=== PATIENT | male | born 1970 | race Caucasian/White ===

== ENCOUNTER 2023-06-20 10:47 | Emergency (ER) | payer OTHER, SELFPAY ==
[2023-06-20 10:48] VITALS: BP 162/95
[2023-06-20 11:21] LABS: % Basophils 0.7 % (0-2); % Eosinophils 3.2 % (0-6); % Immature Granulocytes 0.5 % (0-0.5); % Lymphocytes 36.5 % (20.5-51.1); % Monocytes 9.1 % (1.7-9.3); Absolute Eosinophils 0.1 10^3/uL (0-0.7); Absolute Lymphocytes 1.5 10^3/uL (1.2-3.4); Absolute Monocytes 0.4 10^3/uL (0.1-0.6); Hematocrit 40.4 % (39.0-52.0); Hemoglobin 14.4 g/dL (13.0-18.0); Mean Corp Hgb Conc. 35.6 g/dL (33.0-37.0); Mean Corpuscular Hgb 30.9 pg (27.0-31.0); Mean Corpuscular Volume 86.7 fL (80.0-94.0); Nucleated Red Blood Cells % 0 % (-); Platelet Count 145 10^3/uL (130-400); Red Blood Cell Count 4.66 10^6/uL (4.70-6.10); Red Cell Dist. Width 12.1 % (11.5-14.5); White Blood Cell Count 4.1 10^3/uL (4.8-10.8)
--- NOTE | 2023-06-20 11:26 | ED.GENMED ---
History of Present Illness
<Carol Lopez PA-C - Last Filed: 06/20/23 22:56>
General
Chief Complaint: Fainting Sensation
Source: patient
Exam Limitations: none
Time Seen by Provider: 06/20/23 11:01
Nursing documentation reviewed up to this point in time: agreed with
Travel History
Have you had any contact with someone who has COVID-19?: No
Do you have any symptoms of coronavirus? Fever > 100 degrees, chills, cough, shortness of breath, sore throat, loss of taste or smell, muscle aches, or headache?: No
History of Present Illness
History of Present Illness:
Patient is a 52-year-old male with history of vertigo presenting for evaluation of multiple complaints. Patient states that when he woke up this morning he generally felt unwell/'off '. While at work he endorses becoming very clammy, lightheaded,
and developing a gradual onset headache after reaching down to last picker some tools. While walking into the emergency department around 1045AM he noticed an acute onset substernal chest pressure and associated shortness of breath. Chest pressure is
nonexertional but he does endorse worsening with deep inspiration. He denies any abdominal pain, fever, chills, cough. He denies any recent viruses/illnesses. Patient denies any back pain, numbness/tingling, weakness.
He denies any recent travel or surgeries. He denies any personal history of blood clots. His father does have a history of DVT.
He reports this sensation of lightheadedness is very different from prior vertigo episodes.
Past History
<Carol Lopez PA-C - Last Filed: 06/20/23 22:56>
Past History
ED Past Medical History: Psychiatric (Generalized anxiety disorder) and Other (Vertigo, obstructive sleep apnea)
ED Past Surgical History: None
Social History
Tobacco: Former smoker
Alcohol: Occasional
Personal:
Living: with family
Family History
Family History: Early CAD
Phy Exam
<Carol Lopez PA-C - Last Filed: 06/20/23 22:56>
Physical Exam
Physical Exam:
General: In no apparent distress, non-toxic
Vitals: Hypertensive, otherwise vital signs stable,
HEENT: Atraumatic, normocephalic; pupils equal round reactive light bilaterally, protecting airway
Neck: appears supple, no JVD, no tenderness over the carotids bilaterally
CV: Regular rate and rhythm, heart sounds normal, no evidence of cyanosis; moderate tenderness to palpation of anterior chest wall
Resp: No evidence of respiratory distress, lungs clear; O2 saturation 100 on room air
Abd: Soft, nontender in all 4 quadrants, non-distended
Extremities: No deformities, no evidence of cyanosis or edema; DP pulses palpable and equal bilaterally
Neuro: alert and oriented x 3; grossly intact, moving all extremities spontaneously
Psych: Normal affect
Skin: Intact, no rashes
Scores
<Carol Lopez PA-C - Last Filed: 06/20/23 22:56>
Heart Score for Chest Pain Patients
STEMI patient?: No
History: Moderately Suspicious
ECG: Normal
Age: >45 - <65 years
Risk Factors: 1 or 2 Risk Factors
Troponin: </= Normal Limit
Heart Score for Chest Pain Patients: 3
Heart Score Risk: 2.5% MACE over next 6 weeks
PE Wells Score
Symptoms of DVT: No
No alternative diagnosis better explains the illness: No
Tachycardia with pulse > 100: No
Immobilization (>=3 days) or surgery within previous 4 weeks: No
Prior history of DVT or pulmonary embolism: No
Presence of hemoptysis: No
Presence of malignancy: No
Pulmonary Embolism Risk Score: 0
Probability of PE: Pt is low risk
PERC Rule Criteria
Age <50 years: No
HR <100 bpm: Yes
Room air oxygen sat >94%: Yes
History of DVT or PE: No
Recent trauma or surgery: No
Hemoptysis: No
Exogenous estrogen: No
Clinical signs suggestive of DVT: No
: No
Considered low risk for PE: Yes
PERC Score: 1
PE can be excluded by PERC: No
<Steven Butts, - Last Filed: 06/20/23 15:38>
PE Wells Score
Pulmonary Embolism Risk Score: 0
Probability of PE: Pt is low risk
PERC Rule Criteria
PERC Score: 1
PE can be excluded by PERC: No
Course
<Carol Lopez PA-C - Last Filed: 06/20/23 22:56>
Orders/Labs/Results
Orders:
Orders
06/20/23 11:12
Complete Blood Count/With Diff Urgent
Comprehensive Metabolic Panel Urgent
Troponin I Urgent
06/20/23 11:38
Electrocardiogram (*1) Urgent
Reason for Study: Chest Pain
EKG- Treatment ONCE
06/20/23 11:40
CR Chest - 2 Views Urgent
Comment:
Reason For Exam: chest pressure, shortness of breath
06/20/23 11:53
EKG- Treatment ONCE
06/20/23 11:57
D-Dimer Urgent
06/20/23 14:08
COVID-19 Antigen Urgent
Source: Nasal Swab
Troponin I Urgent
Influenza A+B Rapid Molecular Urgent
DENISE Source: Nasal Swab
Specimen Description:
06/20/23 15:56
Ibuprofen [Motrin] 400 mg PO NOW STA
Abnormal Lab Results
06/20/23
11:12
WBC 4.1 L 10^3/uL
(4.8-10.8)
RBC 4.66 L 10^6/uL
(4.70-6.10)
MPV 11.0 H fL
(7.4-10.4)
Glucose 128 H mg/dl
(70-99)
06/20/23 11:12
06/20/23 11:12
Vital Signs
Initial and Last Documented VS:
Initial Vital Signs
Temp Pulse Resp BP Pulse Ox
97.6 F 80 18 162/95 100
06/20/23 10:48 06/20/23 10:48 06/20/23 10:48 06/20/23 10:48 06/20/23 10:48
Last Documented Vital Signs
Temp Pulse Resp BP Pulse Ox
97.6 F 70 21 152/94 100
06/20/23 10:48 06/20/23 15:55 06/20/23 15:55 06/20/23 15:55 06/20/23 10:48
<Steven Butts, DO - Last Filed: 06/20/23 15:38>
Orders/Labs/Results
Orders:
Orders
06/20/23 11:12
Complete Blood Count/With Diff Urgent
Comprehensive Metabolic Panel Urgent
Troponin I Urgent
06/20/23 11:38
Electrocardiogram (*1) Urgent
Reason for Study: Chest Pain
EKG- Treatment ONCE
06/20/23 11:40
CR Chest - 2 Views Urgent
Comment:
Reason For Exam: chest pressure, shortness of breath
06/20/23 11:53
EKG- Treatment ONCE
06/20/23 11:57
D-Dimer Urgent
06/20/23 14:08
COVID-19 Antigen Urgent
Source: Nasal Swab
Troponin I Urgent
Influenza A+B Rapid Molecular Urgent
DENISE Source: Nasal Swab
Specimen Description:
06/20/23 15:56
Ibuprofen [Motrin] 400 mg PO NOW STA
Abnormal Lab Results
06/20/23
11:12
WBC 4.1 L 10^3/uL
(4.8-10.8)
RBC 4.66 L 10^6/uL
(4.70-6.10)
MPV 11.0 H fL
(7.4-10.4)
Glucose 128 H mg/dl
(70-99)
06/20/23 11:12
06/20/23 11:12
Vital Signs
Initial and Last Documented VS:
Initial Vital Signs
Temp Pulse Resp BP Pulse Ox
97.6 F 80 18 162/95 100
06/20/23 10:48 06/20/23 10:48 06/20/23 10:48 06/20/23 10:48 06/20/23 10:48
Last Documented Vital Signs
Temp Pulse Resp BP Pulse Ox
97.6 F 70 21 152/94 100
06/20/23 10:48 06/20/23 15:55 06/20/23 15:55 06/20/23 15:55 06/20/23 10:48
<Carol Lopez PA-C - Last Filed: 06/20/23 22:56>
MDM/Problems Addressed
Differential Diagnosis Includes:
Costochondritis, pericarditis, PE, ACS, viral illness, arrhythmia, vasovagal syncope
MDM/Problems Addressed:
Patient is a 52-year-old male presenting with chest pressure, shortness of breath, lightheadedness since this morning. Chest pain describes an acute onset pressure about an hour ago with no exertional component. There is some pleuritic component.
Patient is somewhat hypertensive, otherwise vital signs stable. Physical exam as documented above. Heart has regular rate and rhythm, lungs clear. Chest pain somewhat reproducible. He has no evidence of DVT on exam. Neuroexam without any focal
neurodeficits. Symptoms consistent with a vasovagal episode but given acute onset chest pain and shortness of breath will check basic labs, troponin, EKG, chest x-ray. Given pleuritic component of symptoms -will check D-dimer although suspicion
for PE low.
CBC with mild leukopenia of 4.1, otherwise no clinically significant abnormalities. Will add on covid/flu swabs to rule out viral infection CMP without any clinically significant abnormalities. Initial troponin negative. Given symptoms started
only an hour ago. Will repeat troponin in 3 hours. EKG shows normal sinus rhythm without any signs of ischemia. Chest x-ray pending.
In to reassess patient. His vital signs remain stale. Patient appears in no respiratory distress. Chest xray shows no evidence of acute cardiopulmonary disease. D-dimer negative. Repeat troponin negative. viral swabs negative.
Patient has been observed in department for over 5 hours with no worsening in symptoms or vital signs. Workup here has been entirely negative. Initial episode of lightheadedness seems vasovagal in nature. He has remained stable. Admit not indicated.
Will discharge with close return precautions, PCP follow-up. Patient and patient's comfortable with plan
Chronic conditions affecting care:
Depression
Acute Exacerbation and/or Progression of Chronic Illness:
N/A
<Carol Lopez PA-C - Last Filed: 06/20/23 22:56>
*Radiology
Radiology exam reviewed: preliminary read by ED provider and radiology read reviewed
*Pulse Oximetry
Patient hypoxic: no
*EKG
Interpreted by ED Provider?: Yes
EKG Intrepretation Date: 06/20/23
Interpretation: normal
Heart Rate: 64
Rate: normal
Rhythm: sinus
[place]: normal axis
Interval: normal interval
QRS Pattern: normal QRS
Ischemia: no ischemia
*[employer] Interpretation
Rate: normal
Interpretation: normal
Heart Rate: 68
Rhythm: sinus
*Critical Care Note
Total Time (30-74mins, 75-104mins- exclusive of procedures): Not Applicable
ED Attending Note
<Carol Lopez PA-C - Last Filed: 06/20/23 22:56>
-
Portions of this chart may have been created with voice recognition software.� Occasional wrong word or��sound alike� substitutions may have occurred due to the inherent limitations of voice recognition software.
<Steven Butts DO - Last Filed: 06/20/23 15:38>
ED Attending Note
Patient seen and examined by attending physician: Yes
I performed a history and physical exam of patient and discussed management with resident, I reviewed resident's note and agree with documented findings and plan of care.: Yes
ED Attending Note:
I have reviewed and agree with history and treatment plan by Carol Lopez. My exam revealed
Physical Exam
General: no apparent distress, not acutely ill
Neck: supple. no meningeal signs. normal posterior pharynx
Heart: s1/s2 regular rate and rhythm, no murmur. equal radial
pulses.
HEENT: Pupils equal round reactive to light, EOMI
Lungs: no acute respiratory distress. clear bilaterally, chest wall tender to palpation, reproducing pain.
Abdomen: normal bowel sounds. not tender. no CVAT
Neuro: alert and oriented. no focal neurological deficits cranial nerves II through XII intact
Skin: no rash
Psychiatric: well kept. interactive and cooperative
Extremities: no edema. no calf tenderness. negative homans. good distal pulses
No signs of dysrhythmia, troponins negative serially. Suspect chest pain is chest wall pain. D-dimer negative. Do not suspect dissection. Near syncope.
Discharge Plan
Departure
Patient Disposition: Home (Routine Discharge)
Date of Disposition: 06/20/23
Time of Disposition: 15:42
Patient with high blood pressure during this ER visit?: Yes
Condition: Good
Covid-19: Negative COVID-19
Discharge Problem:
Anterior chest wall pain
Instructions: Chest Pain (DC), BLOOD PRESSURE
Prescriptions:
No Action
sertraline 25 mg Tablet
25 mg PO DAILY
therapeutic multivitamin Tablet
1 tab PO DAILY
ascorbic acid (vitamin C) [Vitamin C] 500 mg Tablet
500 mg PO DAILY
ibuprofen 400 mg Tablet
400 mg PO Q6H PRN (Reason: mild pain)
cholecalciferol (vitamin D3) [Vitamin D3] 25 mcg (1,000 unit) Tablet,Chewable
25 mcg PO DAILY
meclizine 12.5 mg tablet
12.5 mg PO TID PRN (Reason: dizziness) 3 Days Qty: 9 0RF
Cortisporin-TC 3.3-3-10-0.5 mg/mL drops,suspension
1 drp otic (ear) BID 5 Days Qty: 10 0RF
Rx Instructions:
apply in left ear
Referrals:
Perfecto Elias MD [Family Provider] - Call in 1-3 days for appt
Stand Alone Forms: Return to Work
Activity Restrictions/Additional Instructions:
- Return to the emergency department with any worsening of chest pain, shortness of breath, persistent dizziness/lightheadedness, intractable nausea/vomiting, severe headache/neck pain, weakness, worsening in current symptoms, or any other concerns
-You can take Motrin/Tylenol as needed for discomfort
-You should follow-up with your primary care provider to ensure symptoms are improving and for further evaluation
Interventions
Interventions:
*Risk Screen - Suicide Last Done: 06/20/23 11:01
*General Assessment Last Done: 06/20/23 11:01
*Neglect/Abuse Screening Last Done: 06/20/23 11:01
ED- Fall Risk Assessment Last Done: 06/20/23 16:01
*ED COVID-19 Vaccine History Last Done: 06/20/23 11:01
*Nursing Disposition Last Done: 06/20/23 16:01
ED- Cardiac Assessment Last Done: 06/20/23 11:01
ED- Neurological Assessment Last Done: 06/20/23 11:01
Discharge Date and Time
Discharge Date/Time: 06/20/23 16:10
[2023-06-20 11:31] LABS: ALT (SGPT) 25 U/L (0-50); AST (SGOT) 33 U/L (17-59); Albumin 4.2 g/dl (3.5-5.0); Alkaline Phosphatase 76 U/L (38-126); Blood Urea Nitrogen 15 mg/dl (9-20); Calcium 8.9 mg/dl (8.4-10.2); Carbon Dioxide 26 mmol/L (22-30); Chloride 106 mmol/L (98-107); Glucose 128 mg/dl (70-99); Potassium 3.7 mmol/L (3.5-5.1); Sodium 137 mmol/L (135-145); Total Bilirubin 0.5 mg/dl (0.2-1.3); Total Protein 6.7 g/dl (6.3-8.2); eGFR > 60.00
[2023-06-20 11:43] LABS: Troponin I < 0.012 ng/ml
[2023-06-20 12:31] VITALS: BP 144/91
[2023-06-20 13:00] VITALS: BP 135/93
[2023-06-20 14:00] VITALS: BP 150/91
[2023-06-20 14:39] LABS: COVID-19 Antigen Negative (Negative)
[2023-06-20 15:00] VITALS: BP 154/83
[2023-06-20 15:07] LABS: Troponin I < 0.012 ng/ml
[2023-06-20 15:55] VITALS: BP 152/94
[2023-06-20] MEDS: MOTRIN 400 MG PO (16:00)
== END 2023-06-20 16:10 | disposition home or self-care (01) ==
LOC: EMR 10:47
PROVIDERS: Physician Assistant; EMERGENCY PHYSICIAN Emergency Medicine; FAMILY PHYSICIAN Family Medicine
DX: R07.89 Other chest pain (principal); Z87.891 Personal history of nicotine dependence; F32.A Depression, unspecified; R03.0 Elevated blood-pressure reading, without diagnosis of hypertension
CPT/HCPCS: 99285; 71046; 80053; 84484; 85025; 85379; 87502; 87811; 93005

== ENCOUNTER → 2023-11-16 15:02 | Outpatient (REF) | payer OTHER, SELFPAY | LOC: HWRAD 15:02 | PROVIDERS: ATTENDING PHYSICIAN Physician Assistant Medical | DX: M54.2 Cervicalgia (principal); E04.1 Nontoxic single thyroid nodule | CPT/HCPCS: 76536 ==

== ENCOUNTER 2023-12-25 15:53 | Observation (INO) | payer OTHER, SELFPAY ==
[2023-12-25] VITALS (11 sets, daily range): BP systolic 104–159; BP diastolic 59–100; BMI 33.9; BMI 35.2
[2023-12-25] MEDS: NSS 1000 IV (10:23)
[2023-12-25] MEDS: VALIUM INJECTION 5 MG IV (10:27)
[2023-12-25 10:30] LABS: % Basophils 0.7 % (0-2); % Eosinophils 0.7 % (0-6); % Immature Granulocytes 1.8 % (0-0.5); % Lymphocytes 16.8 % (20.5-51.1); % Monocytes 4.5 % (1.7-9.3); % Neutrophils 75.5 % (42.2-75.2); Absolute Immature Granulocytes 0.1 10^3/uL (0-0.05); Absolute Lymphocytes 0.8 10^3/uL (1.2-3.4); Absolute Monocytes 0.2 10^3/uL (0.1-0.6); Absolute Neutrophils 3.4 10^3/uL (1.4-6.5); Hematocrit 43.2 % (39.0-52.0); Hemoglobin 15.1 g/dL (13.0-18.0); Mean Corpuscular Hgb 31.7 pg (27.0-31.0); Mean Corpuscular Volume 90.6 fL (80.0-94.0); Mean Platelet Volume 11.7 fL (7.4-10.4); Nucleated Red Blood Cells % 0 % (-); Platelet Count 149 10^3/uL (130-400); Red Blood Cell Count 4.77 10^6/uL (4.70-6.10); Red Cell Dist. Width 12.1 % (11.5-14.5); White Blood Cell Count 4.5 10^3/uL (4.8-10.8)
[2023-12-25 10:42] LABS: Blood Urea Nitrogen 19 mg/dl (9-20); Calcium 9.4 mg/dl (8.4-10.2); Carbon Dioxide 21 mmol/L (22-30); Chloride 106 mmol/L (98-107); Estimated Creatinine Clearance > 125 ml/min; Glucose 164 mg/dl (70-99); Potassium 4.3 mmol/L (3.5-5.1); Sodium 140 mmol/L (135-145); eGFR > 60.00
--- NOTE | 2023-12-25 10:49 | ED.GENMED ---
History of Present Illness
<DO Eliud Alvarez Last Filed: 12/25/23 10:52>
General
Chief Complaint: Chest Pain
Source: patient
Time Seen by Provider: 12/25/23 10:13
History of Present Illness
History of Present Illness:
53-year-old male presents to the emergency room complaining of vertigo. Patient has a history of vertigo. He has had 2 episodes in the past. He woke up today with sensation of the room spinning when he moves his head. When he sits perfectly
still the symptoms go away. He took a meclizine which did not help. While experiencing the vertigo the patient also developed chest pain. He was brought to the emergency room by 911. He received nitro and aspirin en route. No known cardiac
history.
Past History
<DO Eliud Alvarez Filed: 12/25/23 10:52>
Past History
ED Past Medical History: Psychiatric (Generalized anxiety disorder) and Other (Vertigo, obstructive sleep apnea)
ED Past Surgical History: None
Social History
Tobacco: Former smoker
Alcohol: Occasional
Personal:
Living: with family
Family History
Family History: Early CAD
Phy Exam
<DO Eliud Alvarez Filed: 12/25/23 10:52>
Physical Exam
Physical Exam:
General: Awake, Alert, Oriented X3. No acute distress.
Vitals: unremarkable
Head: Atraumatic
Eyes: Pupils equal, EOMI, positive nystagmus
Throat: Airway intact, no exudates
Neck: Trachea midline
Lungs: Clear and equal b/l
Heart: Regular rate, no murmurs
Abd: Soft, Nontender, No pulsatile mass
Neuro: Cranial nerves intact, muscle strength equal bilaterally, cerebellar exam normal
Skin: Warm, dry, no rash
Extremities: pulses equal b/l, no edema
Scores
<Daniel Krueger, DO - Last Filed: 12/25/23 15:22>
Heart Score for Chest Pain Patients
STEMI patient?: Not applicable
Course
<Jesus KevinJordana Matthews, DO - Last Filed: 12/25/23 10:52>
Orders/Labs/Results
Orders:
Orders
12/25/23 10:11
ECG [Electrocardiogram (*1)] Urgent
Reason for Study: Chest Pain
EKG- Treatment ONCE
12/25/23 10:20
0.9% Sodium Chloride 1000 ml [Nss] 1,000 ml IV BOLUS
diazePAM [Valium Injection] 5 mg IV NOW STA
12/25/23 10:24
Basic Metabolic Panel Urgent
Complete Blood Count/With Diff Urgent
Troponin I Urgent
12/25/23 12:18
PT Consult [Pt Eval And Treat] Urgent
Treatment: vestibular dysfx
Activity Level: As Tolerated
12/25/23 13:11
Dexamethasone Sod Phosphate [Decadron] 10 mg IV NOW STA
Meclizine [Antivert] 25 mg PO NOW STA
12/25/23 15:19
Admit/Transfer Patient As Directed
Co-Sign Provider:
Level of Care: Observation services
Assign to:: Telemetry
Physician / Group: yajaira
Diagnosis: vestibular neuritis
Reason for Telemetry: Arrhythmia
Date to Stop Telemetry: 12/28/23
Time to Stop Telemetry: 11:00
PRN Pain Medication Management As Directed
May give lesser potent ordered pain med per pt: Yes
preference::
Protocol:: Medication orders for pain may be administered in a
manner that supports deferring to patient preference
when the pt is:
- Requesting an ordered lesser potent pain medication.
Least to most potent pain medications are defined
as: acetaminophen < NSAID < tramadol < opioids
(morphine, oxycodone, hydromorphone).
- Requesting a lesser dose of the same medication IF
ORDERED.
- Requesting a less intrusive route of administration
if both routes are prescribed by the provider (PO <
IV).
12/25/23 15:20
Code Status As Directed
Resuscitation Status: Full Code
12/28/23 11:00
DC Protocol for Telemetry ONCE
Abnormal Lab Results
12/25/23
10:24
WBC 4.5 L 10^3/uL
(4.8-10.8)
MCH 31.7 H pg
(27.0-31.0)
MPV 11.7 H fL
(7.4-10.4)
Abs Immat Gran (auto) 0.1 H 10^3/uL
(0-0.05)
Absolute Lymphs (auto) 0.8 L 10^3/uL
(1.2-3.4)
Immature Gran % 1.8 H %
(0-0.5)
Neutrophils % 75.5 H %
(42.2-75.2)
Lymphocytes % 16.8 L %
(20.5-51.1)
Carbon Dioxide 21 L mmol/L
(22-30)
Glucose 164 H mg/dl
(70-99)
12/25/23 10:24
12/25/23 10:24
Vital Signs
Initial and Last Documented VS:
Initial Vital Signs
Temp Pulse Resp BP Pulse Ox
97.8 F 58 16 126/84 95
12/25/23 10:13 12/25/23 10:13 12/25/23 10:13 12/25/23 10:13 12/25/23 10:13
Last Documented Vital Signs
Temp Pulse Resp BP Pulse Ox
97.8 F 57 13 104/59 99
12/25/23 10:13 12/25/23 11:15 12/25/23 11:15 12/25/23 11:00 12/25/23 11:15
<Daniel Krueger, DO - Last Filed: 12/25/23 15:22>
Orders/Labs/Results
Orders:
Orders
12/25/23 10:11
ECG [Electrocardiogram (*1)] Urgent
Reason for Study: Chest Pain
EKG- Treatment ONCE
12/25/23 10:20
0.9% Sodium Chloride 1000 ml [Nss] 1,000 ml IV BOLUS
diazePAM [Valium Injection] 5 mg IV NOW STA
12/25/23 10:24
Basic Metabolic Panel Urgent
Complete Blood Count/With Diff Urgent
Troponin I Urgent
12/25/23 12:18
PT Consult [Pt Eval And Treat] Urgent
Treatment: vestibular dysfx
Activity Level: As Tolerated
12/25/23 13:11
Dexamethasone Sod Phosphate [Decadron] 10 mg IV NOW STA
Meclizine [Antivert] 25 mg PO NOW STA
12/25/23 15:19
Admit/Transfer Patient As Directed
Co-Sign Provider:
Level of Care: Observation services
Assign to:: Telemetry
Physician / Group: yajaira
Diagnosis: vestibular neuritis
Reason for Telemetry: Arrhythmia
Date to Stop Telemetry: 12/28/23
Time to Stop Telemetry: 11:00
PRN Pain Medication Management As Directed
May give lesser potent ordered pain med per pt: Yes
preference::
Protocol:: Medication orders for pain may be administered in a
manner that supports deferring to patient preference
when the pt is:
- Requesting an ordered lesser potent pain medication.
Least to most potent pain medications are defined
as: acetaminophen < NSAID < tramadol < opioids
(morphine, oxycodone, hydromorphone).
- Requesting a lesser dose of the same medication IF
ORDERED.
- Requesting a less intrusive route of administration
if both routes are prescribed by the provider (PO <
IV).
12/25/23 15:20
Code Status As Directed
Resuscitation Status: Full Code
12/28/23 11:00
DC Protocol for Telemetry ONCE
Abnormal Lab Results
12/25/23
10:24
WBC 4.5 L 10^3/uL
(4.8-10.8)
MCH 31.7 H pg
(27.0-31.0)
MPV 11.7 H fL
(7.4-10.4)
Abs Immat Gran (auto) 0.1 H 10^3/uL
(0-0.05)
Absolute Lymphs (auto) 0.8 L 10^3/uL
(1.2-3.4)
Immature Gran % 1.8 H %
(0-0.5)
Neutrophils % 75.5 H %
(42.2-75.2)
Lymphocytes % 16.8 L %
(20.5-51.1)
Carbon Dioxide 21 L mmol/L
(22-30)
Glucose 164 H mg/dl
(70-99)
12/25/23 10:24
12/25/23 10:24
Vital Signs
Initial and Last Documented VS:
Initial Vital Signs
Temp Pulse Resp BP Pulse Ox
97.8 F 58 16 126/84 95
12/25/23 10:13 12/25/23 10:13 12/25/23 10:13 12/25/23 10:13 12/25/23 10:13
Last Documented Vital Signs
Temp Pulse Resp BP Pulse Ox
97.8 F 57 13 104/59 99
12/25/23 10:13 12/25/23 11:15 12/25/23 11:15 12/25/23 11:00 12/25/23 11:15
<Daniel Krueger, DO - Last Filed: 12/25/23 15:22>
*Critical Care Note
Total Time (30-74mins, 75-104mins- exclusive of procedures): Not Applicable
<Daniel Krueger, DO - Last Filed: 12/25/23 15:22>
Update Note
Update Note:
1230 ER attending
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
Reviewed PT note, patient feeling a bit better after Valium, will try some steroids and meclizine
2:40 PM reviewed with nursing patient still very symptomatic difficulty ambulating comfortable while lying flat
ED Attending Note
<Jesus Matthews, DO - Last Filed: 12/25/23 10:52>
-
Portions of this chart may have been created with voice recognition software.� Occasional wrong word or��sound alike� substitutions may have occurred due to the inherent limitations of voice recognition software.
Discharge Plan
Departure
Patient Disposition: Admit
Date of Disposition: 12/25/23
Time of Disposition: 14:38
Admit to: Med/Surg
Presentation/result/management discussed w/ accepting MD/DO: Hospitalist
Patient with high blood pressure during this ER visit?: No
Condition: Fair
Discharge Problem:
Vertigo
Prescriptions:
No Action
therapeutic multivitamin Tablet
1 tab PO QPM
cholecalciferol (vitamin D3) [Vitamin D3] 25 mcg (1,000 unit) Tablet,Chewable
25 mcg PO QPM
ascorbic acid (vitamin C) [Vitamin C] 500 mg Tablet,Chewable
500 mg PO QPM
ibuprofen 200 mg Tablet
400 mg PO Q6HPRN PRN (Reason: mild pain)
fluticasone propionate [Flonase] 50 mcg/actuation [place],Suspension
1 spray INTRANASAL DAILYPRN PRN (Reason: allergies)
sertraline 50 mg Tablet
50 mg PO DAILY
Referrals:
sAhli Ramirez PA-C [Family Provider] -
Interventions
Interventions:
*Risk Screen - Suicide Last Done: 12/25/23 10:13
*General Assessment Last Done: 12/25/23 10:13
*Neglect/Abuse Screening Last Done: 12/25/23 10:13
ED- Cardiac Assessment Last Done: 12/25/23 10:18
ED- Neurological Assessment Last Done: 12/25/23 10:18
ED Swallowing Screen Last Done: 12/25/23 12:00
Discharge Date and Time
Print Language: BENGALI
[2023-12-25 10:57] LABS: Troponin I < 0.012 ng/ml
[2023-12-25] MEDS: ANTIVERT 25 MG PO (13:19)
[2023-12-25] MEDS: DECADRON 10 MG IV (13:20)
--- NOTE | 2023-12-25 15:24 | HPS.HSE ---
Family Physician
-
Family Physician: Ashli Ramirez
Chief Complaint
-
vertigo
History of Present Illness
53-year-old male past medical history of generalized anxiety disorder, vertigo, obstructive sleep apnea presenting for vertigo. He woke up today with sensation of the room spinning when he moves his head. 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 2 days ago he noticed pressure in his right ear and had some sore throat which later resolved. He denies any fevers or cough.
This morning he woke up with vertigo which is pronounced when he moves his head. He denies any headache. He does have some sensitivity to light. He had an episode of vomiting this morning. He denies any hearing loss. He took meclizine which did
not help. While experiencing the vertigo patient was also extremely anxious developed chest tightness with shortness of breath and sweating which later improved. He has minimal chest tightness at this time.
Today he also developed pain described as burning in his bilateral thigh area.
He is a former smoker. He drinks alcohol occasionally.
He was brought to the emergency room by EMS and received nitro and aspirin en route.
Medical History
Past Medical History
Past Medical History: Reports Other (generalized anxiety disorder, vertigo, obstructive sleep apnea )
Past Surgical History: Reports None
Social History
Tobacco: Former Smoker
Alcohol: Occasional
Drug: None
Family History
Family History: Not pertinent
Allergies / Home Medications
Allergies reflects when Allergies were last updated in [email or web address].
Home Medications with original date entered in [email or web address]
Allergy/Medication List:
Allergies
Allergy/AdvReac Type Severity Reaction Status Date / Time
No Known Allergies Allergy Verified 12/25/23 10:12
Home Medications
cholecalciferol (vitamin D3) 25 mcg (1,000 unit) chewable tablet (Vitamin D3) 25 mcg PO QPM Supplement 03/08/22
therapeutic multivitamin 1 tab PO QPM Supplement 03/08/22
ascorbic acid (vitamin C) 500 mg chewable tablet (Vitamin C) 500 mg PO QPM 12/25/23
fluticasone propionate 50 mcg/actuation nasal spray,suspension 1 spray intranasal DAILYPRN PRN allergies 12/25/23
ibuprofen 200 mg tablet 400 mg PO Q6HPRN PRN mild pain 12/25/23
sertraline 50 mg tablet 50 mg PO DAILY 12/25/23
Review of Systems
-
History Source: Patient
A 12 point ROS was completed and negative except as noted: Yes
Constitutional: Reports No Symptoms
EENT: Reports No Symptoms
Respiratory: Reports No Symptoms
Cardiac: Reports No Symptoms
Abdomen/GI: Reports No Symptoms
: Reports No Symptoms
Musculoskeletal: Reports No Symptoms
Skin: Reports No Symptoms
Neurological: Reports See HPI
Endocrine: Reports No Symptoms
Hematologic/Lymphatic: Reports No Symptoms
Psych: Reports No Symptoms
Physical Exam
Vital Signs
Vital Signs
Temp Pulse Resp BP Pulse Ox
97.8 F 57 13 104/59 99
12/25/23 10:13 12/25/23 11:15 12/25/23 11:15 12/25/23 11:00 12/25/23 11:15
Physical Exam
General: Well Developed, Well Nourished and No Apparent Distress
HEENT: NormoCephalic, Moist mucous membranes and Atraumatic
Respiratory: Clear
Cardiac: S1/S2 and Regular Rhythm; No Murmur or Rub
GI: Soft, Non Tender, Non Distended and Normal Bowel Sounds; No Organomegaly
Rectal: Deferred by Provider
Musculoskeletal: No Clubbing, No Cyanosis and No Edema
Skin: No Rash
Neuro: Nonfocal/grossly intact and Other (nystagmus rigtht gaze )
Laboratory Results
-
12/25/23 10:24
12/25/23 10:24
Laboratory Results
Troponin I < 0.012 ng/ml 12/25/23 10:24
Data Reviewed
-
Lab Data: Labs Reviewed by me
Old Records: Reviewed
Impression/Plan
-
IMPRESSION:
PLAN:
# Acute vertigo likely vestibular neuritis
-Right-sided nystagmus on examination
-Meclizine, diazepam, dexamethasone given in ER
-Continue Ativan as needed
-Start prednisone taper starting with 60 mg
-Vestibular therapy
-Will check MRI brain given bilateral thigh numbness although CVA seems less likely
# Chest tightness likely secondary to anxiety
-Troponin negative
-EKG shows sinus bradycardia with heart rate of 59
Generalized anxiety disorder
-Continue sertraline
Obstructive sleep apnea
Full code
DVT prophylaxis�SCDs
Regular diet
[2023-12-25] MEDS: THERAGRAN 1 TABLET PO (20:54)
[2023-12-25] MEDS: VITAMIN C 500 MG PO (20:54)
[2023-12-25] MEDS: VITAMIN D3 (cholecalciferol) 25 MCG PO (20:54)
[2023-12-26] VITALS (7 sets, daily range): BP systolic 124–160; BP diastolic 69–95; PULSE 104
--- NOTE | 2023-12-26 01:48 | PTCARENOTE ---
Pt. received from the ED. He is admitted with vestibular neuritis, no c/o dizziness, c/o nausea and was hungry, so a lunch box was given. He is oriented to the unit with call santana in reach and bed in lowest position.
[2023-12-26 07:27] LABS: % Basophils 0.1 % (0-2); % Immature Granulocytes 0.5 % (0-0.5); % Lymphocytes 8.7 % (20.5-51.1); % Monocytes 5.2 % (1.7-9.3); % Neutrophils 85.5 % (42.2-75.2); Absolute Immature Granulocytes 0.1 10^3/uL (0-0.05); Absolute Lymphocytes 0.9 10^3/uL (1.2-3.4); Absolute Monocytes 0.6 10^3/uL (0.1-0.6); Absolute Neutrophils 9.3 10^3/uL (1.4-6.5); Hematocrit 43.4 % (39.0-52.0); Hemoglobin 15.3 g/dL (13.0-18.0); Mean Corp Hgb Conc. 35.3 g/dL (33.0-37.0); Mean Corpuscular Hgb 31.6 pg (27.0-31.0); Mean Corpuscular Volume 89.7 fL (80.0-94.0); Mean Platelet Volume 11.5 fL (7.4-10.4); Nucleated Red Blood Cells % 0 % (-); Platelet Count 190 10^3/uL (130-400); Red Blood Cell Count 4.84 10^6/uL (4.70-6.10); Red Cell Dist. Width 12.1 % (11.5-14.5); White Blood Cell Count 10.9 10^3/uL (4.8-10.8)
[2023-12-26] MEDS: ZOLOFT 50 MG PO (07:28)
[2023-12-26] MEDS: DELTASONE 60 MG PO (07:28)
[2023-12-26 07:50] LABS: ALT (SGPT) 22 U/L (0-50); AST (SGOT) 26 U/L (17-59); Alkaline Phosphatase 76 U/L (38-126); Blood Urea Nitrogen 17 mg/dl (9-20); Calcium 9.6 mg/dl (8.4-10.2); Carbon Dioxide 21 mmol/L (22-30); Chloride 108 mmol/L (98-107); Estimated Creatinine Clearance > 125 ml/min; Glucose 125 mg/dl (70-99); Potassium 4.3 mmol/L (3.5-5.1); Sodium 142 mmol/L (135-145); Total Bilirubin 0.5 mg/dl (0.2-1.3); Total Protein 6.5 g/dl (6.3-8.2); eGFR > 60.00
[2023-12-26] MEDS: TYLENOL 650 MG PO (09:00)
[2023-12-26 09:49] LABS: Troponin I < 0.012 ng/ml
--- NOTE | 2023-12-26 13:54 | W.PN.HOSP.TC ---
Today's Communication/Plan
-
steroids, diphenhydramine
vestibular therapy
MRI brain
Assessment / Plan
Assessment / Plan
Physical Exam
General: Well Developed, Well Nourished and No Apparent Distress
HEENT: NormoCephalic, Moist mucous membranes and Atraumatic
Respiratory: Clear
Cardiac: S1/S2 and Regular Rhythm; No Murmur or Rub
GI: Soft, Non Tender, Non Distended and Normal Bowel Sounds; No Organomegaly
Rectal: Deferred by Provider
Musculoskeletal: No Clubbing, No Cyanosis and No Edema
Skin: No Rash
Neuro: Nonfocal/grossly intact and Other (nystagmus right gaze )
PLAN:
# Acute vertigo likely vestibular neuritis
-Right-sided nystagmus on examination
-Continue Ativan as needed
-Start prednisone taper starting with 60 mg
-Diphenhydramine prn
- Vestibular therapy
-Will check MRI brain given bilateral thigh numbness although CVA seems less likely
-Will need ENT eval outpatient
# Chest tightness likely secondary to anxiety
-F/u trops
-EKG shows sinus bradycardia with heart rate of 59
Generalized anxiety disorder
-Continue sertraline
Obstructive sleep apnea
Full code
DVT prophylaxis�HSQ
Regular diet
Anticipated Discharge: Within 24 hours
Subjective/Interval History
-
Date of Service: December 26, 2023
dizziness improved, slightly nauseous
Objective Data
-
Labs:
Laboratory Results
12/26/23
06:44
WBC 10.9 H
Hgb 15.3
Hct 43.4
Plt Count 190 D
Sodium 142
Potassium 4.3
Chloride 108 H
Carbon Dioxide 21 L
BUN 17
Creatinine 0.8
Glucose 125 H
Calcium 9.6
Total Bilirubin 0.5
AST 26
ALT 22
Alkaline Phosphatase 76
Vital Signs:
Vital Signs
Temp Pulse Resp BP Pulse Ox
98.2 F 84 17 150/83 98
12/26/23 11:40 12/26/23 11:40 12/26/23 11:40 12/26/23 11:40 12/26/23 11:40
I&O
12/25/23 12/26/23 12/27/23
06:59 06:59 06:59
Intake Total 240 / 240
Balance 240 / 240
Review of Systems
-
History Source: Patient
All other systems: Not reviewed unless documented
Data Reviewed
-
Labs: Labs Reviewed by me
--- NOTE | 2023-12-26 15:21 | CM ---
Reviewed chart, met with patient to obtain information for assessment. Patient stated that he lives with his in a split level home with two steps to enter. He described himself as independent with his ADLs, personal care, dressing, bathing and
ambulates without the use of a device. 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 He drives and can get himself to his appointments and do all of his own shopping.
Patient has a CPAP.
He has never had VN services.
He has not been to a SNF in the past.
Patient has a prescription plan and uses, [facility] in [place] for all of his medications.
Patient's PCP is, Ashli Ramirez.
Plan: Case management will continue to follow and assist with discharge planning. Patient feels that he will be able to return home when stable.
[2023-12-26] MEDS: ATIVAN 1 MG IV (16:02)
[2023-12-26] MEDS: NSS (PRESERVATIVE FREE) 0.5 ML IV (16:05)
[2023-12-26 16:37] LABS: Troponin I < 0.012 ng/ml
[2023-12-26] MEDS: THERAGRAN 1 TABLET PO (17:25)
[2023-12-26] MEDS: VITAMIN D3 (cholecalciferol) 25 MCG PO (17:25)
[2023-12-26] MEDS: VITAMIN C 500 MG PO (17:26)
[2023-12-26 21:19] LABS: Troponin I < 0.012 ng/ml
[2023-12-27 03:29] VITALS: BP 150/98
[2023-12-27 03:34] LABS: Troponin I < 0.012 ng/ml
[2023-12-27 07:28] VITALS: BP 150/82
[2023-12-27] MEDS: DELTASONE 60 MG PO (08:21)
[2023-12-27] MEDS: ZOLOFT 50 MG PO (08:22)
[2023-12-27 10:43] VITALS: BP 143/95; PULSE 72; O2SAT 98
[2023-12-27 11:31] VITALS: BP 146/88
--- NOTE | 2023-12-27 11:58 | W.PN.HOSP.TC ---
Addendum entered and electronically signed by Reji Schafer MD 12/28/23 18:01:
[id number]
Original Note:
Today's Communication/Plan
-
steroid taper
diphenhydramine, meclizine prn
vestibular therapy
ent outpatient and pcp outpatient f/u
Assessment / Plan
Assessment / Plan
Physical Exam
General: Well Developed, Well Nourished and No Apparent Distress
HEENT: NormoCephalic, Moist mucous membranes and Atraumatic
Respiratory: Clear
Cardiac: S1/S2 and Regular Rhythm; No Murmur or Rub
GI: Soft, Non Tender, Non Distended and Normal Bowel Sounds; No Organomegaly
Rectal: Deferred by Provider
Musculoskeletal: No Clubbing, No Cyanosis and No Edema
Skin: No Rash
Neuro: Nonfocal/grossly intact and Other (nystagmus right gaze )
PLAN:
# Acute vertigo likely vestibular neuritis
-Right-sided nystagmus on examination
-Continue Ativan as needed
-Start prednisone taper: 60 mg daily on days 1 through 5, 40 mg on day 6, 30 mg on day 7, 20 mg on day 8, 10 mg on day 9, and 5 mg on day 10.
-Diphenhydramine prn
- Vestibular therapy
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
-Will need ENT eval outpatient
# Chest tightness likely secondary to anxiety
-F/u trops neg
-EKG shows sinus bradycardia with heart rate of 59
Generalized anxiety disorder
-Continue sertraline
Obstructive sleep apnea
Full code
DVT prophylaxis�HSQ
Regular diet
More than 30 minutes spent in discharge including
Final examination of the patient
Summarizing hospital stay
Instructions for continuing care to all relevant caregivers
Preparation of discharge records, prescriptions, and referral forms
Total time spent (35 in minutes):
Anticipated Discharge: Today
Subjective/Interval History
-
Date of Service: December 27, 2023
feels much better
Objective Data
-
Vital Signs:
Vital Signs
Temp Pulse Resp BP Pulse Ox
98.4 F 66 18 146/88 98
12/27/23 11:31 12/27/23 11:31 12/27/23 11:31 12/27/23 11:31 12/27/23 11:31
I&O
12/26/23 12/27/23 12/28/23
06:59 06:59 06:59
Intake Total 240 / 240 960 / 960
Balance 240 / 240 960 / 960
Review of Systems
-
History Source: Patient
All other systems: Not reviewed unless documented
Physical Exam
-
General: No Apparent Distress
HEENT: Normocephalic and Atraumatic
Respiratory: Clear to Auscultation; Negative Wheezes
Cardiac: Regular Rhythm and S1/S2
Breast: Deferred by me
GI: Soft, Nontender and Nondistended
Rectal: Deferred by Provider
Genito-urinary: Deferred by me
Musculoskeletal: No Clubbing, No Cyanosis and No Edema
Skin: Warm
Neuro: Awake
Psych: Calm
--- NOTE | 2023-12-27 12:04 | W.DS.TRANS ---
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
-
Discharge Instructions:
Discharge Diagnosis/Procedures Acute vertigo likely vestibular neuritis
Diet Low Cholesterol,Low Fat
Activity As tolerated
Instructions:
Stand-Alone Forms:
Changes to Home Medications: Yes
Discharge Medications:
DC Medications w/original date entered in [employer]
cholecalciferol (vitamin D3) 25 mcg (1,000 unit) chewable tablet (Vitamin D3) 25 mcg PO QPM Supplement 03/08/22
therapeutic multivitamin 1 tab PO QPM Supplement 03/08/22
ascorbic acid (vitamin C) 500 mg chewable tablet (Vitamin C) 500 mg PO QPM Supplement 12/25/23
fluticasone propionate 50 mcg/actuation nasal spray,suspension 1 spray intranasal DAILYPRN PRN allergies 12/25/23
ibuprofen 200 mg tablet 400 mg PO Q6HPRN PRN mild pain 12/25/23
sertraline 50 mg tablet 50 mg PO DAILY anxiety 12/25/23
diphenhydramine HCl 25 mg capsule 25 mg PO Q4HPRN PRN dizziness #10 caps 12/27/23
meclizine 12.5 mg tablet 12.5 mg PO TID PRN dizziness #20 tabs 12/27/23
prednisone 20 mg tablet 60 mg (3 x 20 mg) PO DAILY 3 days #9 tabs 12/27/23
prednisone 5 mg tablet 5 mg PO DIRECTED #21 tabs 12/27/23
Home Medication Changes
diphenhydramine HCl 25 mg capsule 25 mg PO Q4HPRN PRN dizziness #10 caps 12/27/23
meclizine 12.5 mg tablet 12.5 mg PO TID PRN dizziness #20 tabs 12/27/23
prednisone 20 mg tablet 60 mg (3 x 20 mg) PO DAILY 3 days #9 tabs 12/27/23
prednisone 5 mg tablet 5 mg PO DIRECTED #21 tabs 12/27/23
Pending Results: No
== END 2023-12-27 13:06 | disposition home or self-care (01) ==
LOC: 3 WEST ACU 15:53
PROVIDERS: Emergency Medicine; ADMITTING PHYSICIAN Hospitalist; ATTENDING PHYSICIAN Internal Medicine; EMERGENCY PHYSICIAN Emergency Medicine; FAMILY PHYSICIAN Physician Assistant Medical
DX: R42 Dizziness and giddiness (principal); R07.89 Other chest pain; H55.00 Unspecified nystagmus; R00.1 Bradycardia, unspecified; R61 Generalized hyperhidrosis; R11.10 Vomiting, unspecified; R06.02 Shortness of breath; M79.652 Pain in left thigh; M79.651 Pain in right thigh; F41.1 Generalized anxiety disorder; G47.33 Obstructive sleep apnea (adult) (pediatric); Z87.891 Personal history of nicotine dependence; Z79.51 Long term (current) use of inhaled steroids; Z82.49 Family history of ischemic heart disease and other diseases of the circulatory system
CPT/HCPCS: 70553; 80048; 80053; 84484; 85025; 93005; 96361; 96374; 96375; 97112; 97116; 99285; A9575; G0378

== ENCOUNTER 2023-12-29 06:16 | Outpatient (RCR) | payer OTHER, SELFPAY | END 2023-12-29 23:59 | disposition home or self-care (01) | LOC: RPT 06:16 | PROVIDERS: ATTENDING PHYSICIAN Physician Assistant Medical | DX: R42 Dizziness and giddiness (principal); Z73.6 Limitation of activities due to disability; R51.9 Headache, unspecified | CPT/HCPCS: 97112; 97162 ==